=== PATIENT | male | born 1950 | race Caucasian/White ===

== ENCOUNTER 2018-02-26 05:35 | Emergency (ER) | payer MEDICARE ==
[2018-02-26] VITALS (26 sets, daily range): BP systolic 92–173; BP diastolic 58–93; PULSE 50–94; RESP 12–22; TEMP 96.2; O2SAT 93–100
[~2018-02-26 05:35] MED LIST: LISI10TA PO; TAB-TAB PO
[2018-02-26] MEDS ORDERED: SODIUM CHLORIDE 0.9% FLUSH 10 ML FLUSH IVF PRN (05:45)
[2018-02-26] MEDS ORDERED: ASPIRIN 81 MG CHEW TAB CHEW ONE (05:45)
[2018-02-26] MEDS ORDERED: MORPHINE SULFATE 4 MG/ML INJ IV PUSH ONE (05:45)
[2018-02-26] MEDS ORDERED: niCARdipine INJ 25 MG in SODIUM CHLOR 0.9% 250 ML INJ 240 ML IV PRN (05:45)
[2018-02-26] MEDS ORDERED: ONDANSETRON HCL 4 MG/2 ML VIAL IV PUSH ONE ×2 (05:45→08:30)
[2018-02-26] MEDS ORDERED: NITROGLYCERIN-D5W 50 MG/250 ML 250 ML IV ONE (05:45)
[2018-02-26] MEDS ORDERED: SODIUM CHLOR 0.9% 1000 ML INJ 1,000 ML IV SCH (05:45)
[2018-02-26] MEDS ORDERED: SODIUM CHLORID 0.9% 500 ML INJ 500 ML IV ONE (05:45)
[2018-02-26 06:03] LABS: AUTOMATED NEUTROPHIL # 5.2 TH/MM3 (1.8-7.7); BASOPHIL # 0.1 TH/MM3 (0-0.2); BASOPHIL % 0.8 % (0.0-2.0); EOSINOPHIL # 0.1 TH/MM3 (0-0.4); EOSINOPHIL % 0.8 % (0.0-4.0); HEMATOCRIT 48.1 % (39.0-51.0); HEMOGLOBIN 15.7 GM/DL (13.0-17.0); LYMPHOCYTE # 1.9 TH/MM3 (1.0-4.8); MEAN CELL VOLUME 87.5 FL (80.0-100.0); MEAN CORPUSCULAR HEMOGLOBIN 28.6 PG (27.0-34.0); MEAN CORPUSCULAR HGB CONC 32.7 % (32.0-36.0); MEAN PLATELET VOLUME 8.1 FL (7.0-11.0); MONO % 10.5 % (0.0-8.0); MONOCYTE # 0.9 TH/MM3 (0-0.9); NEUT % 64.9 % (16.0-70.0); PLATELET COUNT 237 TH/MM3 (150-450); RED BLOOD COUNT 5.49 MIL/MM3 (4.50-5.90); RED CELL DISTRIBUTION WIDTH 12.5 % (11.6-17.2); WHITE BLOOD COUNT 8.2 TH/MM3 (4.0-11.0)
[2018-02-26 06:04] LABS: CHLORIDE 106 MEQ/L (98-107); SODIUM (NA) 140 MEQ/L (136-145)
[2018-02-26 06:06] LABS: CALCIUM 8.8 MG/DL (8.5-10.1)
[2018-02-26 06:07] LABS: BICARBONATE 26.2 MEQ/L (21.0-32.0); BLOOD UREA NITROGEN 20 MG/DL (7-18); GLUCOSE,RANDOM 136 MG/DL (74-106); MAGNESIUM 2.2 MG/DL (1.5-2.5)
--- NOTE | 2018-02-26 06:07 | PD ---
HPI Chief Complaint: Cardiac Complaint Time Seen by Provider: 05:40 Travel History International Travel<30 days: No Contact w/Intl Traveler<30days: No Traveled to known affect area: No History of Present Illness HPI 67-year-old male presents to the emergency department by private transportation for evaluation of left upper extremity pain sudden onset just prior to arrival to the emergency department. Patient states he was sleeping and was awakened from sleep with severe pain to the left upper extremity and into his chest. Patient denies any shortness of breath sweats nausea vomiting or referred neck back right upper extremity or abdominal pain. Patient denies any lower extremity numbness tingling or weakness. Patient as well as complain of severe pain to the left upper extremity complains of discoloration and numbness and tingling and weakness of the extremity. Patient denies headache visual disturbance confusion or difficulty with speech. Patient rates arm pain as severe. Patient denies personal history of hypertension dyslipidemia cardiac disease diabetes and does not smoke cigarettes. Patient does admit to chewing tobacco. Patient states that last week he had some mid upper back pain that he thought he had strained his upper back but no other recent injury or fall or complaint. Patient's had no fever chills or respiratory illness symptoms. No recent long distance travel. No personal history or family history of clotting disorder or connective tissue disorder. Patient takes no blood thinning agents. Review of electronic medical record identifies history of hypertension, dyslipidemia, TIA 2008 and tobacco use. [facility] Past Medical History Narrative Medical Patient denies past medical history review of medical records identifies history of hypertension dyslipidemia TIA in 2008 tobacco use; nursing notes reviewed High Cholesterol: Yes Cerebrovascular Accident: Yes (TIA 2008) Diminished Hearing: No Hypertension: Yes Past Surgical History Tonsillectomy: Yes Social History Alcohol Use: No Tobacco Use: Yes (SNUS TOBACCO POUCH 4 PER DAY) Substance Use: No Allergies-Medications (Allergen,Severity, Reaction): Coded Allergies: No Known Allergies (Verified Allergy, Unknown, 02/26/18) Reported Meds & Prescriptions Reported Meds & Active Scripts Active Lisinopril/Hctz 20/25 (HCTZ/Lisinopril) Tab 1 Tab PO DAILY Reported Multivitamin (Multivitamins) 1 Tab Tab 1 Tab PO DAILY Review of Systems Except as stated in HPI: all other systems reviewed are Neg General / Constitutional: No: Fever, Chills Eyes: No: Diploplia, Blurred Vision, Photophobia HENT: No: Headaches Cardiovascular: Positive: Chest Pain or Discomfort, Diaphoresis Respiratory: No: Shortness of Breath Gastrointestinal: No: Nausea, Abdominal Pain Genitourinary: No: Flank Pain Musculoskeletal: Positive: Weakness (LUE), Cramping (LUE), Pain (LUE) Neurologic: Positive: Weakness (LUE), Coordination Problem (LUE), Paresthesia ( LUE), No: Dizziness, Syncope, Focal Abnormalities Psychiatric: No: Anxiety Hematologic/Lymphatic: No: Easy Bruising Physical Exam Narrative GENERAL: Well-developed well-nourished male in obvious distress with diaphoresis O2 saturation 100% and no respiratory distress; GCS is 15 SKIN: Warm and dry. HEAD: Normocephalic. EYES: No scleral icterus. No injection or drainage. NECK: Supple, trachea midline. No JVD or lymphadenopathy. CARDIOVASCULAR: Regular rate and rhythm without murmurs, gallops, or rubs. RESPIRATORY: Breath sounds equal bilaterally. No accessory muscle use. GASTROINTESTINAL: Abdomen soft, non-tender, nondistended. MUSCULOSKELETAL: No cyanosis, or edema. Attention left upper extremity with pallor no palpable or dopplerable radial ulnar brachial arterial pulses. Weakness is noted to the left upper extremity. Right upper extremity demonstrates full range of motion 5/5 strength radial ulnar pulses are 2+ to palpation capillary refill is brisk and less than 2 seconds per digit; bilateral lower extremities femoral pulses are 2+ to palpation bilaterally unable to palpate popliteal posterior tibialis or dorsalis pedis pulses. Patient does have brisk less than 2 seconds capillary refill of the digits of the right foot and has 3 second capillary refill of the toes of the left foot. BACK: Nontender without obvious deformity. No CVA tenderness. Data Data Last Documented VS Vital Signs Date Time Temp Pulse Resp B/P (MAP) Pulse Ox O2 Delivery O2 Flow Rate FiO2 02/26/18 08:18 73 16 99/59 (72) 93 Nasal Cannula 4.00 02/26/18 06:20 96.2 Orders Orders Electrocardiogram (02/26/18 05:40) Basic Metabolic Panel (Bmp) (02/26/18 05:40) Ckmb (Isoenzyme) Profile (02/26/18 05:40) Complete Blood Count With Diff (02/26/18 05:40) Magnesium (Mg) (02/26/18 05:40) Prothrombin Time / Inr (Pt) (02/26/18 05:40) Act Partial Throm Time (Ptt) (02/26/18 05:40) Troponin I (02/26/18 05:40) Ecg Monitoring (02/26/18 05:40) Bilateral Bp Monitoring (02/26/18 05:40) Iv Access Insert/Monitor (02/26/18 05:40) Oximetry (02/26/18 05:40) Oxygen Administration (02/26/18 05:40) Sodium Chloride 0.9% Flush (Ns Flush) (02/26/18 05:45) Cta Thor Abd Aorta W Iv C W3d (02/26/18 05:40) Ondansetron Inj (Zofran Inj) (02/26/18 05:45) Morphine Inj (Morphine Inj) (02/26/18 05:45) Sodium Chlorid 0.9% 500 Ml Inj (Ns 500 M (02/26/18 05:45) Sodium Chlor 0.9% 1000 Ml Inj (Ns 1000 M (02/26/18 05:45) Nicardipine Inj (Cardene Inj) (02/26/18 05:45) Type And Screen (02/26/18 05:42) Nitroglycerin-D5w 50 Mg/250 Ml (Nitrogly (02/26/18 05:45) Aspirin Chew (Aspirin Chew) (02/26/18 05:45) CKMB (02/26/18 05:45) CKMB% (02/26/18 05:45) Morphine Inj (Morphine Inj) (02/26/18 06:30) Iohexol 350 Inj (Omnipaque 350 Inj) (02/26/18 06:23) Chest, Single Ap (02/26/18 05:40) Labetalol Inj (Trandate Inj) (02/26/18 06:45) Labetalol Inj (Trandate Inj) (02/26/18 06:45) Morphine Inj (Morphine Inj) (02/26/18 07:00) Hydromorphone Pf Inj (Dilaudid Pf Inj) (02/26/18 07:15) Lorazepam Inj (Ativan Inj) (02/26/18 07:15) Hydromorphone Pf Inj (Dilaudid Pf Inj) (02/26/18 07:45) Lorazepam Inj (Ativan Inj) (02/26/18 07:45) Ondansetron Inj (Zofran Inj) (02/26/18 08:30) Labs Laboratory Tests Test 02/26/18 05:45 White Blood Count 8.2 TH/MM3 Red Blood Count 5.49 MIL/MM3 Hemoglobin 15.7 GM/DL Hematocrit 48.1 % Mean Corpuscular Volume 87.5 FL Mean Corpuscular Hemoglobin 28.6 PG Mean Corpuscular Hemoglobin Concent 32.7 % Red Cell Distribution Width 12.5 % Platelet Count 237 TH/MM3 Mean Platelet Volume 8.1 FL Neutrophils (%) (Auto) 64.9 % Lymphocytes (%) (Auto) 23.0 % Monocytes (%) (Auto) 10.5 % Eosinophils (%) (Auto) 0.8 % Basophils (%) (Auto) 0.8 % Neutrophils # (Auto) 5.2 TH/MM3 Lymphocytes # (Auto) 1.9 TH/MM3 Monocytes # (Auto) 0.9 TH/MM3 Eosinophils # (Auto) 0.1 TH/MM3 Basophils # (Auto) 0.1 TH/MM3 CBC Comment DIFF FINAL Differential Comment Prothrombin Time 10.3 SEC Prothromb Time International Ratio 1.0 RATIO Activated Partial Thromboplast Time 27.8 SEC Blood Urea Nitrogen 20 MG/DL Creatinine 1.30 MG/DL Random Glucose 136 MG/DL Calcium Level 8.8 MG/DL Magnesium Level 2.2 MG/DL Sodium Level 140 MEQ/L Potassium Level 3.7 MEQ/L Chloride Level 106 MEQ/L Carbon Dioxide Level 26.2 MEQ/L Anion Gap 8 MEQ/L Estimat Glomerular Filtration Rate 55 ML/MIN Total Creatine Kinase 133 U/L Creatine Kinase MB 2.3 NG/ML Troponin I LESS THAN 0.02 NG/ML MDM Medical Decision Making Medical Screen Exam Complete: Yes Emergency Medical Condition: Yes Medical Record Reviewed: Yes Interpretation(s) Last Impressions Chest X-Ray 02/26/1840 Signed Impressions: Service Date/Time: Monday, February 26, 2018 06:11 - CONCLUSION: No acute disease. Shashi Ramos MD Aorta CTA 02/26/1826 Signed Impressions: Service Date/Time: Monday, February 26, 2018 05:53 - CONCLUSION: Type A aortic dissection with extension into the brachiocephalic vessels, visceral vessels and iliacs as described in detail above. Shashi Ramos MD CBC & BMP Diagram 02/26/18 05:45 Calcium Level 8.8, Magnesium Level 2.2 Vital Signs Date Time Temp Pulse Resp B/P (MAP) Pulse Ox O2 Delivery O2 Flow Rate FiO2 02/26/18 07:23 79 18 124/72 (89) 100 Nasal Cannula 4.00 02/26/18 07:14 84 20 121/74 (90) 100 Nasal Cannula 4.00 02/26/18 07:09 94 22 159/93 (115) 100 Nasal Cannula 4.00 02/26/18 07:00 77 20 130/67 (88) 100 Nasal Cannula 4.00 02/26/18 06:49 79 20 110/65 (80) 100 Nasal Cannula 4.00 02/26/18 06:46 63 20 131/67 (88) 100 Nasal Cannula 4.00 02/26/18 06:45 66 20 145/72 (96) 100 Nasal Cannula 4.00 02/26/18 06:40 60 141/75 02/26/18 06:31 100 Nasal Cannula 4.00 02/26/18 06:29 58 20 135/77 (96) 100 Nasal Cannula 4.00 02/26/18 06:25 18 100 Nasal Cannula 4.00 02/26/18 06:25 100 Nasal Cannula 4.00 02/26/18 06:20 96.2 58 18 150/75 (100) 100 Nasal Cannula 4.00 02/26/18 06:19 58 20 157/83 (107) 100 Nasal Cannula 4.00 02/26/18 06:11 60 20 168/84 (112) 100 Nasal Cannula 4.00 02/26/18 06:08 60 168/84 02/26/18 05:42 50 20 173/84 (113) 98 Room Air Differential Diagnosis Limb ischemia, aortic dissection type a versus type B, myocardial infarction Narrative Course Patient immediately placed on monitor car operator stat CTA of the thoracic and abdominal aorta are ordered and patient sent emergently to CT after obtaining IV access; EKG is sinus bradycardia with rate of 50 LVH criteria and no acute ST elevation; patient placed on nitroglycerin infusion and nicardipine infusion ordered blood pressure to be directed as target at 95-110 mmHg systolic pressure. Patient administered morphine sulfate 4 mg IV along with Zofran 4 mg IV and normal saline at 70 cc an hour. Stat call placed to vascular surgery and cardiothoracic surgery. Anticipate this will be a type a aortic dissection however both services emergently consulted regarding patient's presentation. Per cardiothoracic patient will need emergent transfer to [facility] as this facility does not have the resources to manage a type a dissection; peripheral vascular patient will be taken directly emergently to the OR at [facility] if this is a type B dissection. Patient returns from CT and obvious persistent pain additional pain medication administered ongoing antihypertensive medication administered patient's mentation remains GCS of 15 Received call from reading radiologist Dr. Ramos who reports the patient has an extensive type a aortic dissection extending to the brachiocephalic vessels visceral vessels and iliacs. Stat call placed to [facility] Case discussed emergently with Dr. Gill cardiothoracic surgeon and Dr. Shay emergency department physician both have graciously accepted this patient in transfer care. Stat call placed to [facility] to transfer the patient emergently by helicopter to [facility]. [facility] not available --[facility] recontacted [phone] notified [facility] not available requests [facility] to send their helicopter [facility] care notified. [facility] Care accepted to transfer patient to [facility] emergently; records and disc to be sent with patient Patient's daughter Mary Marie notified of father's condition at his request [phone]; [phone] @ 8:22 AM [facility] care is in room with patient gsc 15 sedated due to administration of dilaudid and ativan BP 99./59; HR: 72; O2 sat 94-96% RR: 16 Critical Care Narrative Aggregate critical care time was 45 minutes. Time to perform other separately billable procedures was not included in the critical care time. My time did not include minutes spent treating any other patients simultaneously or on activities that did not directly contribute to the patient's treatment. The services I provided to this patient were to treat and/or prevent clinically significant deterioration that could result in: Arrhythmia myocardial infarction stroke I provided critical care services requiring my management, as noted below: Chart data review, documentation time, medication orders and management, vital sign assessments/reviewing monitor data, ordering and reviewing lab tests, ordering and interpreting/reviewing x-rays and diagnostic studies, care of the patient and discussion of the patient with the admitting physicians. Physician Communication Physician Communication 5:50 am stat call to vascular and thoracic; per Dr bauer will look at films now and if type b stat to [facility] per Dr Barraza send to [facility] if type a will not manage at [facility]; discussed with Dr Durga henao and Dr Shay ED at [facility]--send emergent to ED Diagnosis Primary Impression: Aortic dissection, thoracoabdominal Disposition: 70 TRANSFER TO OTHER FACILITY ([facility] to Dr Gill cardiothoracic surgeon and Dr Shay ED ; patient transferred by air [facility] Care) Christine Matthews MD Feb 26, 2018 06:07
[2018-02-26 06:08] LABS: PROTHROMBIN TIME - PATIENT 10.3 SEC (9.8-11.6)
[2018-02-26 06:10] LABS: GLOMERULAR FILTRATION RATE 55 ML/MIN (>89)
[2018-02-26 06:15] LABS: TROPONIN I LESS THAN 0.02 NG/ML (0.02-0.05)
[2018-02-26] MEDS ORDERED: IOHEXOL 350 MG/ML 10 ML VIAL (for RAD DIAG) IVCONTRAST ONE (06:23)
[2018-02-26] MEDS ORDERED: MORPHINE SULFATE 2 MG/ML SYRINGE IV PUSH ONE ×2 (06:30→07:00)
--- NOTE | 2018-02-26 06:34 | RADRPT ---
EXAM DATE/TIME: 02/26/2018 05:53 [facility] COMPARISON: No previous studies available for comparison. INDICATIONS : Evaluate for dissection. Loss of feeling and discoloration in left arm. IV CONTRAST: 100 cc Omnipaque 350 (iohexol) IV RADIATION DOSE: 22.08 CTDIvol (mGy) MEDICAL HISTORY : Non-responsive. SURGICAL HISTORY : Non-responsive. ENCOUNTER: Initial ACUITY: 1 day PAIN SCALE: 10/10 LOCATION: Left upper extremity TECHNIQUE: Volumetric scanning was performed using a multi-row detector CT scanner. The data was post processed with a variety of visualization algorithms including full volume maximum intensity projection, multi -planar sliding thin slab reformation, curved planar reformation, and surface rendering techniques. Using automated exposure control and adjustment of the mA and/or kV according to patient size, radiat ion dose was kept as low as reasonably achievable to obtain optimal diagnostic quality images. DICOM format image data is available electronically for review and comparison. FINDINGS: LUNGS: There are couple of tiny nodules in the right middle lobe, each measuring about 6 mm. These should be followed as appropriate. No evidence of consolidative infiltrate. VASCULAR: There is extensive complex dissection of the aorta and branch vessels. Dissection extends from the ao rtic root through the arch and down to the entire descending aorta into the abdomen and pelvis. Disse ction flaps extend into all of the brachiocephalic vessels with total occlusion of the left subclavia n artery and dissection well up into the left common carotid artery. In the abdomen, dissection exten ds into the celiac artery origin and the left renal artery origin. Flow to the left kidney is moderat denise compromised, mainly upper pole flow. Dissection extends into the common iliac arteries bilaterall y and continues down the external iliac on the right. MEDIASTINUM: There is no evidence of mediastinal adenopathy or mass. ABDOMEN: The liver is focally unremarkable. Spleen is intact. Pancreas and adrenals are benign. Right kidney i s unremarkable. Vascular compromise of the left kidney as noted above. Bowel structures are nondilate d. PELVIS: Left inguinal hernia containing a loop of sigmoid colon. Prostatic enlargement with prostatic calcifi cations. No evidence of free fluid or pelvic adenopathy. CONCLUSION: Type A aortic dissection with extension into the brachiocephalic vessels, visceral vessels and iliacs as described in detail above. Shashi Ramos MD on February 26, 2018 at 6:20 Board Certified Radiologist. This report was verified electronically.
--- NOTE | 2018-02-26 06:39 | RADRPT ---
EXAM DATE/TIME: 02/26/2018 06:11 [facility] COMPARISON: No previous studies available for comparison. INDICATIONS : Chest pain. MEDICAL HISTORY : None. SURGICAL HISTORY : None. ENCOUNTER: Initial ACUITY: 1 day PAIN SCORE: 10/10 LOCATION: Bilateral chest FINDINGS: A single view of the chest demonstrates the lungs to be symmetrically aerated without evidence of mas s, infiltrate or effusion. The cardiomediastinal contours are unremarkable. Osseous structures are intact. CONCLUSION: No acute disease. Shashi Ramos MD on February 26, 2018 at 6:36 Board Certified Radiologist. This report was verified electronically.
[2018-02-26] MEDS ORDERED: LABETALOL HCL 100 MG/20 ML VIAL IV PUSH ONE (06:45)
[2018-02-26] MEDS ORDERED: LABETALOL INJ 500 MG in SODIUM CHLORIDE 0.9% INJ 150 ML IV PRN (06:45)
[2018-02-26] MEDS ORDERED: HYDROmorphone HCL PF 2 MG/ML VIAL IV PUSH ONE ×2 (07:15→07:45)
[2018-02-26] MEDS ORDERED: LORazepam 2 MG/ML VIAL IV PUSH ONE ×2 (07:15→07:45)
--- NOTE | 2018-02-26 13:10 | EKG ---
Date Performed: 02/26/2018 Time Performed: 05:38:58 PTAGE: 67 years EKG: Sinus rhythm left axis deviation VOLTAGE CRITERIA FOR LVH NONSPECIFIC T-WAVE ABNORMALITY ABNORMAL ECG INTERPRETAT ION BASED ON A DEFAULT AGE OF 40 YEARS NO PREVIOUS TRACING DOCTOR: Joseluis Edge Interpretating Date/Time 02/26/2018 13:06:27
== END 2018-02-26 08:41 | disposition short-term general hospital (02) ==
LOC: PHED 05:35
DX: I71.03 Dissection of thoracoabdominal aorta (principal); R53.1 Weakness; I10 Essential (primary) hypertension; E78.5 Hyperlipidemia, unspecified; R94.31 Abnormal electrocardiogram [ECG] [EKG]; Z86.73 Personal history of transient ischemic attack (TIA), and cerebral infarction without residual deficits; Z72.0 Tobacco use
CPT/HCPCS: 71045; 71275; 74174; 80048; 82550; 82552; 83735; 84484; 85025; 85610; 85730; 86850; 86900; 86901; 93005; 96365; 96368; 96375; 96376; 99291; J1170; J2060; J2270; J2405; J7050; Q9967; J7040